=== PATIENT | female | born 1970 | race American Indian/Alaskan Native ===

== ENCOUNTER 2021-11-10 14:19 | Emergency (ER) | payer SELFPAY ==
--- NOTE | 2021-11-10 16:50 | Emergency Department Report ---
ED General Adult HPI - General Chief complaint: Dyspnea/Respdistress Stated complaint: COUGH, FEVER, CP Time Seen by Provider: 11/10/21 16:41 Source: patient Mode of arrival: Ambulatory Limitations: No Limitations - History of Present Illness Initial comments: Patient presents with a 3-day history of URI symptoms including cough, congestion, fevers, chills, muscle aches, body aches, nausea, vomiting, generalized malaise, and sore throat. She has had a headache. She states that she just feels terrible. She had a coworker that was sick. Allegedly the coworker had a virus. She was reportedly negative for coronavirus. Regardless, patient is here for evaluation. She states that she just feels bad. There has been no hemoptysis or hematemesis. She has no melanotic stool. - Related Data Previous Rx's Medication Instructions Recorded Last Taken Type Ondansetron [Zofran Odt] 4 mg PO Q4H #14 tab.rapdis 07/20/14 07/22/14 Rx Ondansetron [Zofran Odt] 4 mg PO Q6HR PRN #30 tab.rapdis 07/23/14 Unknown Rx oxyCODONE /ACETAMINOPHEN [Percocet 1 tab PO Q6HR PRN #20 tablet 07/23/14 Unknown Rx 5/325] traMADoL [Ultram 50 MG tab] 50 mg PO Q6HR PRN #14 tablet 10/10/14 Unknown Rx Oxycodone HCl/Acetaminophen 1 each PO Q6HR PRN #7 tablet 03/08/15 Unknown Rx [Percocet 10/325 mg] Ibuprofen [Motrin 800 MG tab] 800 mg PO TID PRN #30 tablet 11/10/21 Unknown Rx Promethazine [Phenergan SUPPOS] 25 mg [place] Q6HR PRN #10 supp.rect 11/10/21 Unknown Rx methylPREDNISolone [Medrol 4MG 4 mg PO DAILY #1 tab.ds.pk 11/10/21 Unknown Rx DOSEPAK (21 tabs)] Allergies Allergy/AdvReac Type Severity Reaction Status Date / Time No Known Allergies Allergy Verified 07/22/14 20:40 ED Review of Systems ROS: Stated complaint: COUGH, FEVER, CP Other details as noted in HPI Comment: All other systems reviewed and negative Constitutional: see HPI Eyes: denies: eye pain ENT: denies: epistaxis Respiratory: see HPI Cardiovascular: as per HPI Endocrine: denies: unexplained weight loss Gastrointestinal: denies: hematemesis Genitourinary: denies: hematuria Musculoskeletal: as per HPI Skin: denies: rash Hematological/Lymphatic: denies: easy bruising ED Past Medical Hx - Past Medical History Hx Congestive Heart Failure: No Hx Diabetes: No Hx Asthma: No Hx COPD: No Additional medical history: fibroids and ovarian cysts - Surgical History Additional Surgical History: LAPROSCOPIC 2009 - Social History Smoking Status: Never Smoker - Medications Home Medications: Home Medications Medication Instructions Recorded Confirmed Last Taken Type Ondansetron [Zofran Odt] 4 mg PO Q4H #14 tab.rapdis 07/20/14 03/08/15 07/22/14 Rx Ondansetron [Zofran Odt] 4 mg PO Q6HR PRN #30 tab.rapdis 07/23/14 03/08/15 Unknown Rx oxyCODONE /ACETAMINOPHEN [Percocet 1 tab PO Q6HR PRN #20 tablet 07/23/14 03/08/15 Unknown Rx 5/325] traMADoL [Ultram 50 MG tab] 50 mg PO Q6HR PRN #14 tablet 10/10/14 03/08/15 Unknown Rx Oxycodone HCl/Acetaminophen 1 each PO Q6HR PRN #7 tablet 03/08/15 Unknown Rx [Percocet 10/325 mg] Ibuprofen [Motrin 800 MG tab] 800 mg PO TID PRN #30 tablet 11/10/21 Unknown Rx Promethazine [Phenergan SUPPOS] 25 mg [place] Q6HR PRN #10 supp.rect 11/10/21 Unknown Rx methylPREDNISolone [Medrol 4MG 4 mg PO DAILY #1 tab.ds.pk 11/10/21 Unknown Rx DOSEPAK (21 tabs)] ED Physical Exam - General Limitations: No Limitations, Other (Pulse ox noted and normal) General appearance: alert, in no apparent distress - Head Head exam: Present: atraumatic, normocephalic - Eye Eye exam: Present: normal appearance, EOMI - ENT ENT exam: Present: normal orophraynx. Absent: normal external ear exam - Neck Neck exam: Present: normal inspection. Absent: meningismus - Respiratory Respiratory exam: Present: normal lung sounds bilaterally. Absent: respiratory distress - Cardiovascular Cardiovascular Exam: Present: regular rate, normal rhythm - GI/Abdominal GI/Abdominal exam: Present: soft - Extremities Exam Extremities exam: Present: normal capillary refill - Back Exam Back exam: Absent: CVA tenderness (R), CVA tenderness (L) - Neurological Exam Neurological exam: Present: alert, oriented X3, CN II-XII intact, normal gait - Psychiatric Psychiatric exam: Present: normal affect, normal mood - Skin Skin exam: Present: warm, dry ED Course Vital Signs 11/10/21 11/10/21 14:47 17:00 Temperature 98.5 F 99.8 F H Pulse Rate 87 81 Respiratory 20 16 Rate Blood Pressure 149/90 161/84 [Right] O2 Sat by Pulse 100 100 Oximetry - Reevaluation(s) Reevaluation #1: 11/10/21 21:10 Patient was discharged ED Medical Decision Making - Medical Decision Making Patient presents with a constellation of symptoms consistent with a viral illness. She has a known sick contact. Whether or not she has coronavirus or influenza or some other virus is unclear. 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 She should isolate at home. She can consider outpatient Covid testing. She does not have adventitious breath sounds to suggest pneumonia. Has no meningeal signs. Critical Care Time: No Critical care attestation.: If time is entered above; I have spent that time in minutes in the direct care of this critically ill patient, excluding procedure time. ED Disposition Clinical Impression: Viruria Disposition: HOME / SELF CARE / HOMELESS Is pt being admited?: No Condition: Stable Additional Instructions: Use Tylenol for fever. Push fluids. Return for problems. Follow-up with your regular doctor for recheck. Prescriptions: methylPREDNISolone [Medrol 4MG DOSEPAK (21 tabs)] 4 mg PO DAILY #1 tab.ds.pk Ibuprofen [Motrin 800 MG tab] 800 mg PO TID PRN #30 tablet PRN Reason: Pain Promethazine [Phenergan SUPPOS] 25 mg NH Q6HR PRN #10 supp.rect PRN Reason: Nausea And Vomiting Referrals: PRIMARY CARE, [Primary Care Provider] - 3-5 Days
[2021-11-10 17:03] VITALS: BP 161/84
== END 2021-11-10 17:06 | disposition home or self-care (01) ==
LOC: ED 14:19
DX: B33.8 Other specified viral diseases (principal); M79.10 Myalgia, unspecified site; R50.9 Fever, unspecified; R11.2 Nausea with vomiting, unspecified; R53.81 Other malaise; J02.9 Acute pharyngitis, unspecified; R51.9 Headache, unspecified
CPT/HCPCS: 99282